=== PATIENT | female | born 1935 | race Caucasian/White ===

== ENCOUNTER 2016-11-23 18:35 | Observation (INO) | payer MEDICARE, OTHER ==
[~2016-11-23] VITALS: Ht 167.6 cm; Wt 67.4 kg
[~2016-11-23 18:35] MED LIST: ADV250INH INHALATION; ALBU18HF INHALATION; ALEN70TA46 PO; LEVO50TA6 PO; LORA2TAB PO; MIRT30TA6 PO; PREG150C PO; RANI300T4 PO; SPIR1TAB2 PO; VENL150C98 PO
[2016-11-23 22:12] VITALS: BP 122/72; PULSE 63; RESP 18; O2SAT 94
[2016-11-23 22:30] VITALS: PULSE 62
[2016-11-23] MEDS ORDERED: Polyethylene Glycol (PEG) 17 Gm Powder PO PRN (23:00)
[2016-11-23] MEDS ORDERED: Ondansetron 2 mg/mL 2 mL Inj IVPUSH PRN (23:00)
[2016-11-23] MEDS ORDERED: Alum-Mag Hydrox-Simeth 30 mL Suspension PO PRN (23:00)
[2016-11-23] MEDS ORDERED: Fluticasone-Salmererol 250-50 Inhaler INHALATION PRN (23:05)
--- NOTE | 2016-11-23 23:20 | PCM.HPMED ---
Subjective Date of Service Nov 23, 2016 Primary Provider: Admitting Physician: Keisha Young MD Primary Care Physician: Naga Mccall MD Attending Physician: Keisha Young MD Admit Status: Direct Admit, Remote Telemetry Chief Complaint: Increased confusion History of Present Illness: This is an 81-year-old female who was transferred here as a direct admission from [facility]. She presented there with some increased confusion. She was a bit more somnolent than usual. She did per ER M.D. at [facility] open eyes follow commands answered the questions appropriately. She however per ER M.D. he does have a history of sometimes taking too much lorazepam or another medication that she has. She lives with her who also has cognitive issues he has dementia. She apparently has mild dementia. Her evaluation in the emergency room at [facility] revealed CT of head without contrast that did not show any acute abnormalities. Urine per ER M.D. did not reveal any urinary tract infection. There was 0 wbc's rare bacteria seen. He was afebrile urine drug screen showed only positive for benzodiazepines. A call level was negative per ER M.D. there. White count was 8.0. ABG showed a pH of 7.39 PO2 of 66 PCO2 of 48.8 with lactate of 0.4 and bicarbonate of 30. Review of Systems: All other review of systems are negative except for as in history of present illness Allergies Coded Allergies: orphenadrine (Verified Allergy, Mild, 10/08/15) propoxyphene (Verified Allergy, Unknown, 10/08/15) Uncoded Allergies: Antiparkinson Agents (Allergy, Severe, 05/26/05) Orphenadrine (Allergy, Severe, 05/26/05) Propoxyphene (Allergy, Unknown, 05/26/05) Home Medications Tylenol when necessary Advair discus 250/50 one puff twice a day when necessary shortness of breath Fosamax 70 mg by mouth weekly Vicodin 5/325 one tab by mouth every 8 hours when necessary pain levothyroxine 25 g 2 tabs by mouth daily lorazepam 1 mg by mouth 3 times a day Lyrica 150 mg by mouth 3 times a day Remeron 15 mg by mouth nightly Omeprazole 20 mg by mouth twice a day Zocor 40 mg by mouth daily Aldactazide 25/25 one tab by mouth twice a day Effexor XR 3 mg by mouth daily Ventolin HFA 2 puffs inhaled 3 times a day when necessary PMH History of anxiety History of asthma History of chronic renal failure Depression Fibromyalgia GERD Hyperlipidemia Hypertension Hypothyroidism Peripheral neuropathy Osteoarthritis History of squamous cell carcinoma face Surgical History Status post appendectomy history of bilateral cataract extraction Status post cholecystectomy Status post hysterectomy Status post tonsillectomy Family History Denies any history of cardiac disease or diabetes Social History 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 Hx Alcohol Use: No Hx Substance Use: No Hx Tobacco Use: Yes Smoking Status: Former Smoker Living Arrangement: with Family Exam Vital Signs Vital Sign - Last Date Time Temp Pulse Resp B/P Pulse Ox O2 Delivery O2 Flow Rate FiO2 11/23/16 22:30 62 11/23/16 22:12 36.6 18 122/72 94 Room Air Exam Constitutional l: Elderly woman in no acute distress is currently talking on the telephone with her Head: Normocephalic atraumatic Eyes: PERRLA DC Mouth no lesions Neck crusty plus over 4 without bruits Chest: Clear to auscultation Cor: Regular rate and rhythm S1-S2 without murmur Abdomen: Soft nontender bowel sounds present Extremities: No pedal edema noted there are some contusions noted on her lower legs Psych: Mood and affect are appropriate Neuro: Oriented to person place, moves all extremities equally Lab and Diagnostics Labs Labs from [facility] are as above also to include lactic acid 1.1 sodium 138 potassium 3.8 chloride 97 bicarbonate 34 glucose 108 BUN 28 creatinine 1.014 calculated GFR of 50 lipase 212 troponin less than 0.010 CK 63 PT 9.9, INR 1.0 magnesium 1.7 TSH 4.450 level was negative and crit 37.1 hemoglobin 12.5 MCV 88.5 platelets 235 Assessment & Plan # Acute encephalopathy, present on admission History improved from description from [facility] ER M.D. Possible due to medication effect due to noncompliant with directions. Placed on telemetry here Monitor status # Needs possible placement Per nurse here from signout from [facility] nurse appears that her daughter' s concerned about home situation and would like to pursue the case management for possible SNIF placement Get PT consultation for gait stability as per daughter apparently that she has had some falls in the recent past # Hypothyroidism, chronic , as on admission Continue her current medication regimen # Depression/anxiety, chronic, present on admission Continue current medication regimen # DVT prophylaxis Use SCDs # CODE STATUS By default is a full code at this time but may need to address with patient and other family members Pain Evaluation: Adequate Pain Control GI Prophylaxis: Proton Pump Inhibitor Resuscitation Status: CPR: Attempt Resuscitation Time spent 60 minutes Keisha Young MD Nov 23, 2016 23:20
[2016-11-23] MEDS ORDERED: Albuterol 2.5 mg/3 mL Inhalation Solution NEB PRN (23:23)
[2016-11-23] MEDS ORDERED: LORazepam 2 mg Tablet PO PRN (23:30)
[2016-11-24] VITALS (12 sets, daily range): BP systolic 105–137; BP diastolic 61–71; PULSE 63–76; RESP 16–18; O2SAT 93–96
[2016-11-24] MEDS: 0.9% Sodium Chloride 1,000 ML IV SCH ×3 (00:38→20:05)
--- NOTE | 2016-11-24 03:03 | NUR ---
Admission Note: Patient arrived on unit pleasantly confused and slightly anxious. Patient stated that she had been at [facility] for hours and she urgently wanted a drink of water. Provided patient a few ice chips and lip balm for dry and chapped lips. Patient was concerned that her family wasn't at bedside. Provided phone so patient could call and daughter. Spoke with and patient was calm. Assured patient that her family knew her location and they could visit her anytime.
--- NOTE | 2016-11-24 03:08 | NUR ---
Admission Assessment: Patient was unable to provide adequate health history. Patient was unable to provide a reliable medication list. Patient stated that she was currently taking Advair and Ventolin and confirmed that she was currently on "many other" medications but could not recall any of them by name. During admission assessment questions "recall values" button was used extensively but patient was able to provide very little to no reliable information to add. This information will need to be gained with the help of family (Daughter). Addendum: 11/24/16 at 0629 by ELENA KONG RN Pt arrived at floor around 2210, direct admit from [facility].
[2016-11-24 06:30] LABS: BASOPHILS % (AUTO) 0.6 % (0-3); EOSINOPHILS % (AUTO) 2.3 % (0-5); MONOCYTES % (AUTO) 11.5 % (4-12); Mean Corpuscular Hemoglobin 28.8 pg (27.0-35.0); Mean Corpuscular Volume 88.6 fL (81-100); NEUTROPHILS % (AUTO) 64.2 % (40-74); Platelet Count 217 bil/L (150-400)
[2016-11-24 06:32] LABS: TROPONIN T 0.01 ug/L (0.0-0.011)
[2016-11-24] MEDS: Venlafaxine XR 75 mg ER24 Capsule PO SCH (07:54)
[2016-11-24] MEDS: Fluticasone-Salmererol 250-50 Inhaler INHALATION SCH ×2 (07:54→20:05)
--- NOTE | 2016-11-24 11:43 | NUR ---
Gave access and faxed facesheet to [employer] per CASEWORK MANAGER and this will be Private Pay.
[2016-11-24 12:33] LABS: APPEARANCE,URINE HAZY (CLEAR,HAZY); COLOR,URINE STRAW (YELLOW); OCCULT BLOOD,URINE NEGATIVE (NEGATIVE); UROBILINOGEN,URINE NORMAL (NORMAL)
--- NOTE | 2016-11-24 13:48 | NUR ---
Evaluation completed. Please go to "Notes" then click on "Assessments and Notes" (bottom left corner of screen). Then select appropriate discipline tab on top of screen.
--- NOTE | 2016-11-24 15:40 | NUR ---
Social Work Initial Assessment: SW met with patient and family, Estevan, and daughter Zheng, regarding discharge plan. Patient is a 81 year old female admitted on 11/23/16 for encephalopathy. Patient resides in [place] with who assist with patient needs but daughter states patient and also demented. Patient daughter assists and checks in to assist with patient medication management. Patient active with [facility] services per rep [place]. Patient PCP as MD Mccall. Patient payer as Medicare and [employer]. Patient currently in observation status. Patient pharmacy of choice as [facility]. Patient has previous SNF history at [facility]. Patient has a walker and wheelchair at home for use. Patient has AD on file. Patient daughter aware of patient observation status. Patient daughter states plan as SNF placement at [facility] under private pay coverage. CARINE requested that UR specialist send referral to [facility] for review. Patient daughter was provided with resource handbook and SW discussed [facility] centers to assist with admitting patient and following rehab. Patient daughter to contact local agencies and SW to consult with SNF to ensure follow up for assistance with [facility]. SW will continue to follow for acceptance at [facility]. PLAN: Referral sent to [facility] SNF, pending acceptance. SNF via private pay. Patient under observation status. Resources handbook provided to patient. Марина ISABEL Addendum: 11/24/16 at 1548 by MEHUL PALACIO Amended: Links added.
--- NOTE | 2016-11-24 17:36 | NUR ---
LOC Patient was alert and oriented this morning. Patient became increasingly confused in the afternoon and was not making sense with her statements. Patient was word searching and continually trying to remember who the president was and asked for paper and a pencil to write her answers down. Patient wanted answers of who the president is written on paper so she would remember to tell her family members the answers to their questions when they come back.
--- NOTE | 2016-11-24 18:25 | PCM.PNMED ---
Subjective Date of Service Nov 24, 2016 Subjective Patient states that she is very tired. She states that she is not sure why she is in the hospital. Pt is unsure if she can take care of herself at home. Daughter reports that the patient has a history of suicide attempts and suicidal ideations. She also reports that the patient's medications are locked, and she is not able to take addition medications. Exam Vital Signs Vital Sign - Last Date Time Temp Pulse Resp B/P Pulse Ox O2 Delivery O2 Flow Rate FiO2 11/24/16 06:35 36.7 63 18 120/61 94 Room Air Intake and Output 11/23/16 11/23/16 11/24/16 Cumulative From/Thru 15:00 23:00 07:00 11/23/16 22:13 - 11/24/16 06:39 Intake Total 788 ml 788 ml Output Total 550 ml 550 ml Balance 238 ml 238 ml Intake Oral 200 ml 200 ml IV Total 588 ml 588 ml Output Urine Total 550 ml 550 ml Exam General: No acute distress, well-developed, appropriately interactive HEENT: Normocephalic, atraumatic. External ears without defect. Anicteric sclerae, moist conjunctivae.Oropharynx with moist mucosa. Neck: Supple with full range of motion. Cardiovascular: Regular rate and rhythm with no murmurs, rubs, or gallops appreciated Pulmonary: Clear to auscultation bilaterally with no crackles, wheezes, or rhonchi. Normal respiratory effort with no use of accessory muscles. Abdomen: Bowel tones present. Soft, nontender, nondistended. Extremities: No clubbing, cyanosis, edema, or lymphadenopathy appreciated. Skin: Ecchymosis on bilateral lower legs. Normal temperature, turgor, and texture; no rash, ulcers, or subcutaneous nodules appreciated. Psychiatric: Normal mood and affect. Alert and oriented to person, place. Pt not oriented to time, unable to report date/year. IVs and Medications Medications Reviewed: Medications were reviewed in detail Lab and Diagnostics Result Diagram: 11/24/1635 11/24/16 0535 Assessment & Plan Acute encephalopathy, unknown etiology, present on admission -UA at [facility] reported as normal -UA repeated here, urine culture pending -Discontinue lorazepam, as it may be contributing to mentation -Continue to monitor for possible causes of encephalopathy -PT consultation to assess Depression, chronic, present on admission, -Daughter reports pt has a history of suicidal ideations and attempts -We will continue with patient's home medications -If pt reports suicidal ideations, will have social work see patient Hypothyroidism, chronic , present on admission Continue her current medication regimen # DVT prophylaxis Use SCDs # CODE STATUS By default is a full code at this time but may need to address with patient and other family members GI Prophylaxis: Proton Pump Inhibitor Resuscitation Status: CPR: Attempt Resuscitation Attending Statement The patient was seen and examined together with Dr. Resendiz on 11/24/2016 and I agree with the history, exam and plan as outlined in the note above. Hoda Resendiz DO Nov 24, 2016 08:24 Epifanio Krause MD Nov 25, 2016 14:07
[2016-11-25] VITALS (7 sets, daily range): BP systolic 105–143; BP diastolic 59–83; PULSE 69–83; RESP 16–18; O2SAT 93–97
--- NOTE | 2016-11-25 | NUR ---
Confusion Pt had an episode of increased confusion and was sitting on the side of the bed with her incont urine brief on the floor in the attempt to "go home." The pt was easily reoriented, cleaned, and placed back into bed without behavioral issues noted. Reoriented to call light. Will continue to monitor for unassisted transfers and toileting needs.
[2016-11-25 06:25] LABS: BASOPHILS % (AUTO) 0.6 % (0-3); EOSINOPHILS % (AUTO) 3.7 % (0-5); MONOCYTES % (AUTO) 10.6 % (4-12); Mean Corpuscular Hemoglobin 29.4 pg (27.0-35.0); Mean Corpuscular Volume 88.5 fL (81-100); NEUTROPHILS % (AUTO) 57.4 % (40-74); Platelet Count 225 bil/L (150-400)
[2016-11-25] MEDS: 0.9% Sodium Chloride 1,000 ML IV SCH (06:29)
[2016-11-25] MEDS: Fluticasone-Salmererol 250-50 Inhaler INHALATION SCH ×2 (08:57→20:19)
[2016-11-25] MEDS: Venlafaxine XR 75 mg ER24 Capsule PO SCH (08:58)
--- NOTE | 2016-11-25 12:12 | NUR ---
Social Work Continued Discharge Planning: CARINE spoke to [facility] rep Goldie, who states that patient accepted for SNF placement under private pay expense. Rep was made aware of [facility] plans to transition patient to [facility] following rehab. Respurces provided to patient daughter previously. CARINE spoke with patient daughter Zheng, who was advised of acceptance and she to contact [facility] to discuss payment expenses. Bed available today and tomorrow per Marteen. CARINE to follow as further needs arise. SW to follow. PLAN: Accepted to [facility] under private pay expense. Bed available today and tomorrow. CARINE to follow. Марина ISABEL
--- NOTE | 2016-11-25 15:40 | PCM.PNMED ---
Subjective Date of Service Nov 25, 2016 Subjective Patient reports that she is feeling much better today, she states that she feels much clearer in her thought process. Patient states that she feels very weak and tired, but is otherwise doing all right. Patient denies any headache, cough, shortness of breath, chest pain, nausea, vomiting, diarrhea, abdominal pain, fever or chills. Patient states that she slept well overnight, but that she was sad when her family left at 10:00 at night. Per nursing patient experienced some confusion overnight attempting to get up and leave. Exam Vital Signs Vital Sign - Last Date Time Temp Pulse Resp B/P Pulse Ox O2 Delivery O2 Flow Rate FiO2 11/25/16 14:03 36.9 71 18 116/75 94 Room Air Intake and Output 11/24/16 11/24/16 11/25/16 Cumulative From/Thru 15:00 23:00 07:00 11/23/16 22:13 - 11/25/16 06:31 Intake Total 1933 ml 1535 ml 4256 ml Output Total 1600 ml 1400 ml 3550 ml Balance 333 ml 135 ml 706 ml Intake Oral 856 ml 236 ml 1292 ml IV Total 1077 ml 1299 ml 2964 ml Output Urine Total 1600 ml 1400 ml 3550 ml # Bowel Movements 1 1 Exam General: No acute distress, well-developed, appropriately interactive HEENT: Normocephalic, atraumatic. External ears without defect. Anicteric sclerae, moist conjunctivae.Oropharynx with moist mucosa. Neck: Supple with full range of motion. Cardiovascular: Regular rate and rhythm with no murmurs, rubs, or gallops appreciated Pulmonary: Clear to auscultation bilaterally with no crackles, wheezes, or rhonchi. Normal respiratory effort with no use of accessory muscles. Abdomen: Bowel tones present. Soft, nontender, nondistended. Extremities: No clubbing, cyanosis, edema, or lymphadenopathy appreciated. Skin: Ecchymosis on bilateral lower legs. Normal temperature, turgor, and texture; no rash, ulcers, or subcutaneous nodules appreciated. Psychiatric: Normal mood and affect. Alert and oriented to person. Patient reports that she is under [facility] [place], and that the year is 2010. She is aware that the name of the hospital scheduled [facility], and the [facility] when asked later. She is unable to report who the dumper is. Patient does have a piece of paper with answers to orientation questions written on it and attempts to look at it when asked a question. IVs and Medications Medications Reviewed: Medications were reviewed in detail Lab and Diagnostics Result Diagram: 11/25/16 0553 11/25/1653 Assessment & Plan Acute encephalopathy, unknown etiology, present on admission -UA at [facility] reported as normal -UA repeated here, urine culture with mixed urogenital jaylon -We have discontinued the IV fluids as patient is taking an appropriate oral intake. -Continue to monitor for possible causes of encephalopathy -PT recommended discharge to SNF, will see patient daily -Patient had episode of confusion overnight, it is possible that she is experiencing sundowning Depression, chronic, present on admission, -Daughter reports pt has a history of suicidal ideations and attempts -We will continue with patient's home medications -Patient has been appropriate and has denied any suicidal ideations Hypothyroidism, chronic , present on admission Continue her current medication regimen Disposition -Patient to discharge to [facility] # DVT prophylaxis Use SCDs GI Prophylaxis: Proton Pump Inhibitor VTE Mechanical Devices: Intermittant Pneumatic CD Resuscitation Status: CPR: Attempt Resuscitation Attending Statement The patient was seen and examined together with Dr. Resendiz on 11/25/2016 and I agree with the history, exam and plan as outlined in the note above. Hoda Resendiz DO Nov 25, 2016 15:40 Epifanio Krause MD Nov 26, 2016 12:45
--- NOTE | 2016-11-25 18:04 | NUR ---
Mentation Pt's mentation fairly clear this morning [able to state that she was in hospital, the date, and who she was]. Pt word searching, but able to communicate most thoughts clearly. Over the course of the day into early evening, pt becoming more confused, with statements not making sense, and becoming more anxious, and easily upset. Family at intermittantly at bedside throughout the day, helping to reorient patient. Will keep MD aware and continue with current plan of care.
--- NOTE | 2016-11-25 18:12 | NUR ---
Case Management: CARPENTER explained to patient and Estevan, as well as son (I didn't get his name) at 1711, all questions answered. Pt's son was politely sarcastic and instructed the pt and spouse not to sign the CARPENTER. The son informed me that they were all highly educated people and they would appeal the decision. I noted on the CARPENTER that "Beneficiary refused to sign" and placed in the chart, I also provided them with a copy. I also provided them with "How Medicare Covers Self-Administered Drugs Given in Hospital Outpatient settings" as they were unsure if they have Medicare Part D. Sherry Ortiz RN
[2016-11-26 00:19] VITALS: BP 151/81; PULSE 67; RESP 18; O2SAT 94
[2016-11-26 04:47] VITALS: BP 120/69; PULSE 70; RESP 18; O2SAT 93
--- NOTE | 2016-11-26 06:43 | NUR ---
Confusion Pt has been confused all shift. Started out making nonsensical statements, and trying to call her family at 1999. By end of shift Pt has been making repetitive statements for about 2 hours. "2468, I think" "Abner, Abner, Abner" "Holger, why?" Pt has been repeating various statements such as these for hours, changing what she says about ever 10-15 minutes. Staff unable to re-orient PT.
[2016-11-26 09:10] VITALS: BP 126/83; PULSE 95; RESP 20; O2SAT 93
[2016-11-26] MEDS: Fluticasone-Salmererol 250-50 Inhaler INHALATION SCH (10:00)
[2016-11-26] MEDS: Venlafaxine XR 75 mg ER24 Capsule PO SCH (10:02)
[2016-11-26 10:08] LABS: BASOPHILS % (AUTO) 0.5 % (0-3); MONOCYTES % (AUTO) 11.2 % (4-12); Mean Corpuscular Hemoglobin 29.3 pg (27.0-35.0); NEUTROPHILS % (AUTO) 69.4 % (40-74); Platelet Count 244 bil/L (150-400)
[2016-11-26 10:50] VITALS: PULSE 80
--- NOTE | 2016-11-26 13:42 | PCM.DIMED ---
Hoda Resendiz DO 11/26/16 1342: Discharge Instructions Date of Service Nov 26, 2016 Dates of Hospitalization Nov 23, 2016 at 22:04 Discharge Diagnosis Discharge Diagnosis Acute encephalopathy, unknown etiology, present on admission Depression, chronic, present on admission, Hypothyroidism, chronic , present on admission Diet No restrictions Activity Limited until seen by PCP Call your provider Fever or Chills, Weakness (unilateral) Patient Instructions Please follow up with your PCP in 1-2 weeks. You are being discharged to a [facility] facility which will continue the medications that were prescribed to you in the hospital. Follow-up Provider: Kacy Mccall MD Follow-up with PCP in: 1 week Epifanio Krause MD 12/04/16 1402: Hoda Resendiz DO Nov 26, 2016 13:42 Epifanio Krause MD Dec 04, 2016 14:02
[2016-11-26] MEDS ORDERED: LORA2TAB PO (13:43)
--- NOTE | 2016-11-26 13:56 | NUR ---
Social Work: Discharge Data: Pt is on day 3 of hospitalization. EMR reviewed. D/C orders are in. Transportation set up fro 2:00pm by [facility]. SAP PI ARCHITECT faxed clinicals and orders to [facility]. SAP PI ARCHITECT spoke with pt's daughter and with pt and her spouse regarding discharge planning, all updated and agreeable. No further d/c planning needs at this time. SAP PI ARCHITECT will continue to follow if needs arise. Assessment: Pt who is independent at baseline. Plan: Pt will d/c to [facility] via wheel chair van at 2:00pm. No further d/c planning needs at this time. SAP PI ARCHITECT will continue to follow if needs arise. CHALO Galeas
--- NOTE | 2016-11-26 14:40 | NUR ---
Discharge: Patient discharged to [facility] @ approx 1420 via cabulance. IV d/c'd intact, telemetry removed, personnel monitor notified. Personal belongings sent w/patient, took bag of clothing. Patient wearing dentures and glasses. Report called to Victorino at [facility]. Patient escorted via wheelchair to main entrance by cabulance transport.
--- NOTE | 2016-11-27 22:21 | PCM.DC.MED ---
Discharge Summary Date of Service Nov 26, 2016 Dates of Hospitalization Date of Hospital Admission Nov 23, 2016 at 22:04 Date of Discharge: Nov 26, 2016 Providers: Admitting Physician: Keisha Young MD Primary Care Physician: Naga Mccall MD Attending Physician: Keisha Young MD Diagnosis at Time of Discharge Diagnosis at Time of Discharge Acute encephalopathy, unknown etiology, present on admission Depression, chronic, present on admission, Hypothyroidism, chronic , present on admission Brief History Per Dr Young's H7P "This is an 81-year-old female who was transferred here as a direct admission from [facility]. She presented there with some increased confusion. She was a bit more somnolent than usual. She did per ER M.D. at [facility] open eyes follow commands answered the questions appropriately. She however per ER M.D. he does have a history of sometimes taking too much lorazepam or another medication that she has. She lives with her who also has cognitive issues he has dementia. She apparently has mild dementia. Her evaluation in the emergency room at [facility] revealed CT of head without contrast that did not show any acute abnormalities. Urine per ER M.D. did not reveal any urinary tract infection. There was 0 wbc's rare bacteria seen. He was afebrile urine drug screen showed only positive for benzodiazepines. A call level was negative per ER M.D. there. White count was 8.0. ABG showed a pH of 7.39 PO2 of 66 PCO2 of 48.8 with lactate of 0.4 and bicarbonate of 30." Hospital Course Acute encephalopathy, unknown etiology, present on admission [place] [facility] [place]UA repeated here, urine culture with mixed urogenital jaylon -Patient taking appropriate oral intake at time of discharge -PT recommended discharge to SNF Depression, chronic, present on admission, -Daughter reports pt has a history of suicidal ideations and attempts -Continue with patient's home medications -Patient has been appropriate and has denied any suicidal ideations Hypothyroidism, chronic , present on admission Continue her current medication regimen Exam Vital Signs (Last) Date Time Temp Pulse Resp B/P Pulse Ox O2 Delivery O2 Flow Rate FiO2 11/26/16 10:50 80 11/26/16 09:10 36.6 20 126/83 93 Room Air Exam General: No acute distress, well-developed, appropriately interactive HEENT: Normocephalic, atraumatic. External ears without defect. Anicteric sclerae, moist conjunctivae.Oropharynx with moist mucosa. Neck: Supple with full range of motion. Cardiovascular: Regular rate and rhythm with no murmurs, rubs, or gallops appreciated Pulmonary: Clear to auscultation bilaterally with no crackles, wheezes, or rhonchi. Normal respiratory effort with no use of accessory muscles. Abdomen: Bowel tones present. Soft, nontender, nondistended. Extremities: No clubbing, cyanosis, edema, or lymphadenopathy appreciated. Skin: Ecchymosis on bilateral lower legs. Normal temperature, turgor, and texture; no rash, ulcers, or subcutaneous nodules appreciated. Psychiatric: Normal mood and affect. Alert and oriented to person.Patient not oriented to place or time. Test 11/23/16 23:00 11/24/16 05:35 11/24/16 12:04 11/26/16 09:46 Hold Urine Received (Received) Magnesium Level 1.7mg/dL (1.6-2.6) Troponin T 0.010ug/L (0.0-0.011) Urine Color Straw (YELLOW) Urine Appearance Hazy (CLEAR,HAZY) Urine pH 7.0 (5.0-8.0) Urine Specific [place] 1.010 (1.003-1.035) Urine Protein Negativemg/dL (NEG,TRACE) Urine Glucose (UA) Negativemg/dL (NEGATIVE) Urine Ketones Negativemg/dL (NEGATIVE) Urine Occult Blood Negative (NEGATIVE) Urine Nitrite Negative (NEGATIVE) Urine Bilirubin Negative (NEGATIVE) Urine Urobilinogen Normalmg/dL (NORMAL) Urine Leukocyte Esterase Negative (NEGATIVE) Urine RBC 0-2/hpf (0-2) Urine WBC 0-5/hpf (0-5) Urine Epithelial Cells Occasional/hpf (NONE-MOD) Urine Crystals None seen (NONE SEEN) Urine Bacteria Moderate/hpf (NONE-FEW) Urine Hyaline Casts None/lpf (NONE) Urine Granular Casts None seen (NONE SEEN) Urine Waxy Casts None seen (NONE SEEN) Urine Red Blood Cell Casts None seen (NONE SEEN) Urine White Blood Cell Casts None seen (NONE SEEN) Urine Mucus None seen (None Seen) Urine Trichomonas None seen (NONE SEEN) Urine Yeast None (NONE SEEN) Urinalysis Comment None Urine Culture Reflexed Indicated White Blood Count 8.1th/mm3 (3.8-10.1) Red Blood Count 4.54mil/mm3 (3.90-5.20) Hemoglobin 13.3g/dL (12.0-15.6) Hematocrit 39.5% (35.0-46.0) Mean Corpuscular Volume 87.0fL (81-100) Mean Corpuscular Hemoglobin 29.3pg (27.0-35.0) Mean Corpuscular Hemoglobin Concent 33.7% (32.0-37.0) Red Cell Distribution Width 16.5% (12.3-15.4) Platelet Count 244bil/L (150-400) Neutrophils (%) (Auto) 69.4% (40-74) Lymphocytes (%) (Auto) 17.8% (14-46) Monocytes (%) (Auto) 11.2% (4-12) Eosinophils (%) (Auto) 1.0% (0-5) Basophils (%) (Auto) 0.5% (0-3) Sodium Level 139mEq/L (134-144) Potassium Level 3.9mEq/L (3.5-5.2) Chloride Level 96mEq/L (97-108) Carbon Dioxide Level 25mmol/L (18-29) Blood Urea Nitrogen 14mg/dL (8-27) Creatinine 0.96mg/dL (0.57-1.00) Estimat Glomerular Filtration Rate 80mL/min (>59) Glucose Level 120mg/dL (60-99) Calcium Level 9.5mg/dL (8.5-10.1) Total Bilirubin 0.3mg/dL (0.0-1.2) Aspartate Amino Transf (AST/SGOT) 26U/L (0-50) Alanine Aminotransferase (ALT/SGPT) 11U/L (0-32) Alkaline Phosphatase 76U/L (25-165) Total Protein 7.1g/dL (6.4-8.4) Albumin 4.1g/dL (3.4-5.0) Discharge Medications Discharge Medications Alendronate/Vitamin D3 (Alendronate/Vitamin D3) 1 Each Tablet 1 TABLET PO WEEKLY (Reported) Mirtazapine (Mirtazapine) 30 Mg Tablet 60 MG PO HS (Reported) Pregabalin (Lyrica) 150 Mg Capsule 150 MG PO TID (Reported) Spironolactone/HCTZ 25-25 mg (Spironolactone/HCTZ 25-25 mg) 1 Each Tablet 1 TABLET PO BID (Reported) Venlafaxine ER (Venlafaxine ER) 150 Mg Cap.er.24h 300 MG PO QAM (Reported) As needed Albuterol Sulfate (Ventolin HFA Inhaler) 200 Puff/18 Gm Inhaler 2 PUFFS INHALATION q4 hrs PRN PRN For Shortness of Breath (Reported) Fluticasone/Salmeterol (Advair 250-50 Diskus) 60 Puff/Inh Disk 1 PUFFS INHALATION BID PRN PRN For Shortness of Breath (Reported) Levothyroxine (Levothyroxine) 50 Mcg Tablet 50 MCG PO DAILY PRN PRN prn ( Reported) Lorazepam (Lorazepam) 2 Mg Tablet 2 MG PO TID PRN PRN For Anxiety Prescribed by: JULIAN ABREU DO Ranitidine (Ranitidine) 300 Mg Tablet 150 MG PO BID PRN PRN For Dyspepsia or Heartburn (Reported) Followup Plan Discharge Diet: No restrictions Discharge Activity: Limited until seen by PCP Patient Instructions Please follow up with your PCP in 1-2 weeks. You are being discharged to a care home facility which will continue the medications that were prescribed to you in the hospital. Follow-up Provider: Kacy Mccall MD Follow-up with PCP in: 1 week Time spent 35 minutes Attending Statement The patient was seen and examined together with Dr. Abreu on 11/26/2016 and I agree with the history, exam and plan as outlined in the note above. copies to: Kacy Mccall MD, Tara L DO Nov 27, 2016 22:21 Epifanio Krause MD Dec 04, 2016 14:02
== END 2016-11-26 14:17 ==
LOC: MPC 22:04
PROVIDERS: ADMIT Specialist; ATTEND Specialist
DX: G93.40 Encephalopathy, unspecified (principal); F32.9 Major depressive disorder, single episode, unspecified; E03.9 Hypothyroidism, unspecified; R41.82 Altered mental status, unspecified; F41.9 Anxiety disorder, unspecified; J45.909 Unspecified asthma, uncomplicated; K21.9 Gastro-esophageal reflux disease without esophagitis; E78.5 Hyperlipidemia, unspecified; I10 Essential (primary) hypertension; M79.7 Fibromyalgia; Z87.891 Personal history of nicotine dependence; Z85.828 Personal history of other malignant neoplasm of skin
CPT/HCPCS: 36415; 80053; 81000; 83735; 84484; 85025; 87086; 87088; 94799; 96374; 97162; G0378; G0379; J2405; J7030